=== PATIENT | female | born 1975 | race Caucasian/White ===

== ENCOUNTER 2021-04-20 08:56 | Emergency (ER) | payer BC, SELFPAY ==
--- NOTE | ~2021-04-20 | XR_ITS ---
EXAMINATION: XR foot LT min 3V DATE: 04/20/2021 09:30 INDICATION: Left foot injury and pain. TECHNIQUE: 4 views of left foot were obtained. COMPARISON: None. FINDINGS: Bone alignment is normal. No fracture. There is mild osteoarthritis of first metatarsophala ngeal joint and first interphalangeal joint. IMPRESSION: 1. Mild polyarticular osteoarthritis. Reviewed, dictated and finalized at location B.
--- NOTE | 2021-04-20 09:02 | ED.LOWEXIN ---
HPI - Extremity Injury (Lower) General Chief Complaint: Extremity Injury, Lower Stated Complaint: Left foot injury Time Seen by Provider: 04/20/21 09:02 Source: patient and RN notes reviewed History of Present Illness HPI Narrative: Patient is a 46-year-old female who presents the urgent care with complaints of a left foot injury. Patient states that last night her was trying to be nice and closed the car door on her left foot . Patient states that she has not done anything rdig-boi-amutups such as ice, elevation, Tylenol/ibuprofen since the injury. Patient states the foot was more swollen this morning and does hurt to wiggle her toes. No other acute complaints. No other acute injuries. No acute distress noted. Patient aware of the plan of care. Some parts of this dictation were generated by voice recognition software and may contain typographical and/or grammatical inaccuracies. Related Data Home Medications Medication Instructions Recorded Confirmed lorazepam 04/20/21 lorazepam 1 mg PO HS 04/20/21 04/20/21 Allergies Allergy/AdvReac Type Severity Reaction Status Date / Time codeine Allergy Unknown Unknown Verified 04/20/21 09:46 Penicillins Allergy Unknown Unknown Verified 04/20/21 09:46 Review of Systems Review of Systems: Narrative: CONSTITUTIONAL: Denies fever, chills, or sweats. EYES: Denies visual changes, redness, or discharge. ENT: Denies rhinorrhea, congestion, sore throat, or otalgia. CARDIOVASCULAR: Denies chest pain, palpitations, or edema. RESPIRATORY: Denies cough or dyspnea. GASTROINTESTINAL: Denies abdominal pain, nausea, vomiting, or diarrhea. GENITOURINARY: Denies dysuria or hematuria. SKIN: Denies rash or itching. MUSCULOSKELETAL: Reports of left foot injury/swelling/pain NEUROLOGIC: Denies headache, numbness, or weakness. All other systems reviewed are negative, except as documented in HPI. [facility] Family History Family History (Updated 09/14/18 @ 10:32 by DOCTOR UNKNOWN) Mother Patient's mother is in good health Social History Social History Smoking status: Current every day smoker Alcohol intake: current Comments At the time of my signature, I reviewed and agree with the nursing past medical, surgical, social, and family history. There is no relevant family history pertinent to the patient complaint. Exam Narrative: Exam Narrative: GENERAL: This is a well-nourished, well-developed patient, in no apparent distress. HEAD: normocephalic, atraumatic. EYES: PERRL. Sclera clear/white. Vision is grossly intact. EARS: External ears normal NOSE: External nose normal with no obvious nasal discharge, nares without redness, no rhinorrhea. THROAT: Mucous membranes moist NECK: Neck supple CARDIOVASCULAR: Regular rate and rhythm without murmurs, gallops, or rubs. RESPIRATORY: Clear to auscultation. Breath sounds equal bilaterally. No wheezes, rales, or rhonchi. SKIN: warm, intact with no suspicious lesions or rash, good texture and turgor. NEURO: awake, alert, and oriented to person, place and time. There were no obvious focal neurologic abnormalities. EXTREMITIES: Mild to moderate edema noted to the dorsal lateral aspect of the left foot with exacerbated pain on flexion and movement of the toes. Mild pain on weightbearing. Range of motion to the left lower extremity within normal limits. Positive strong left pedal pulse with capillary refill less than 2 seconds. Course Vital Signs Vital signs: Vital Signs Temperature 98.6 F 04/20/21 09:08 Pulse Rate 78 04/20/21 09:08 Respiratory Rate 16 04/20/21 09:08 Blood Pressure 138/72 04/20/21 09:08 Pulse Oximetry 100 04/20/21 09:08 Temperature 98.6 F 04/20/21 09:08 Pulse Rate 78 04/20/21 09:08 Respiratory Rate 16 04/20/21 09:08 Blood Pressure 138/72 04/20/21 09:08 Pulse Oximetry 100 04/20/21 09:08 Reviewed MDM - Extremity Injury (Lower) MDM Narrative Medical decision making narrative: Kalyan
[2021-04-20 09:08] VITALS: BP 138/72; PULSE 78; RESP 16; TEMP 37; O2SAT 100
== END 2021-04-20 09:50 | disposition home or self-care (01) ==
PROVIDERS: Emergency Provider Nurse Practitioner Family
DX: M19.072 Primary osteoarthritis, left ankle and foot (principal); F17.200 Nicotine dependence, unspecified, uncomplicated; G60.9 Hereditary and idiopathic neuropathy, unspecified; F41.9 Anxiety disorder, unspecified
CPT/HCPCS: 73630; 99213; G0463